=== PATIENT | male | born 1995 | race African-American/Black ===

== ENCOUNTER 2018-11-25 13:13 | Emergency (ER) | payer MEDICAID ==
[~2018-11-25] VITALS: Ht 182.9 cm; Wt 77.1 kg
[2018-11-25 13:27] VITALS: BP 132/75
--- NOTE | 2018-11-25 13:27 | NUR ---
ED Nurse Note: Pt AAO x4 present at ER c/o lock jaw pain 08/18. Pt bleeding from inside of his mouth from abrasion. Skin intact and no other injuries noted. Pt is refusing to give history as stating "Just fix my fucking jaw problem instead of asking fucking questions." Pt did not let his friend at bedside to give nurse history.
[2018-11-25] MEDS ORDERED: Morphine Sulfate 10mg/ml Inj IM ONE (13:45)
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
--- NOTE | 2018-11-25 15:00 | Diagnostic Imaging Report ---
Indication: Head trauma headache Technique: Contiguous 5 mm thick transaxial imaging of the head obtained in a Siemens Sensation [address] scanner. Soft tissue and bone windows generated. Automatic Exposure Control was utilized. Total Dose length Product (DLP): 2047.[address] Dose Index Volume (CTDIvol): 70.38,28.19 mGy Comparison: none Findings: The size and configuration of the cortical sulci, basal cisterns, and ventricles are within normal limits for age. There is no mass effect, midline shift, or edema identified. There is no evidence of acute hemorrhage or abnormal intra-axial or extra-axial fluid collections. The bones and soft tissues are unremarkable. Impression: No mass effect, edema or acute bleed. The CT scanner at [facility] is accredited by the [employer] and the scans are performed using dose optimization techniques as appropriate to a performed exam including Automatic Exposure control.
[2018-11-25] MEDS ORDERED: Norco 5mg/325mg tab ORAL ONE (15:15)
[2018-11-25] MEDS ORDERED: Ketorolac 60mg Inj IM ONE (15:15)
--- NOTE | 2018-11-25 15:44 | Diagnostic Imaging Report ---
Indication: Facial/mandible trauma and pain Technique: Continuous helical transaxial imaging of the maxillofacial structures obtained without intravenous contrast administration. Coronal 2-D reformats were also obtained. Study obtained in a Siemens sensation [address] Automatic Exposure Control was utilized. Total Dose length Product (DLP): [address] Dose Index Volume (CTDIvol): 0.15, 70.38, 28.19 mGy Comparison: None Findings: There is acute mildly displaced fracture involving the angle of the right mandible. The fracture is open with air traversing the fracture site both on the medial side within the buccal mucosa as well as within facial soft tissues lateral to the mandible fracture. In addition there is a nondisplaced fracture involving the left parasymphysis body of the mandible. The temporal mandibular joints appear normal. The paranasal sinuses and mastoids are clear. The orbits appear normal. IMPRESSION: Acute bilateral mandible fracture as described above The CT scanner at [facility] is accredited by the [employer] and the scans are performed using dose optimization techniques as appropriate to a performed exam including Automatic Exposure control.
[2018-11-25 15:50] VITALS: BP 125/75
--- NOTE | 2018-11-25 15:50 | NUR ---
ED Nurse Note: Pt was cleared to be discharged by ERMD. Pt received the information of clinic he should go for the lock jaw surgery. Pt reported he will go there right away. Pt verbalized understanding and improved pain level which was 5/10. Pt ambulated to be dishcarged. ID band removed.
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
== END 2018-11-25 15:50 | disposition home or self-care (01) ==
LOC: EMR 14:30
DX: S02.609A Fracture of mandible, unspecified, initial encounter for closed fracture (principal); Y04.0XXA Assault by unarmed brawl or fight, initial encounter; Y92.9 Unspecified place or not applicable; Z72.89 Other problems related to lifestyle; F19.90 Other psychoactive substance use, unspecified, uncomplicated
CPT/HCPCS: 70450; 70486; 96372; 99284; J2270